=== PATIENT | male | born 1965 | race Caucasian/White ===

== ENCOUNTER 2017-04-04 01:03 | Emergency (ER) | payer MEDICARE | END 2017-04-04 10:09 | disposition home or self-care (01) | LOC: ED 01:50 | DX: G43.119 Migraine with aura, intractable, without status migrainosus (principal); F20.0 Paranoid schizophrenia; Z72.89 Other problems related to lifestyle | CPT/HCPCS: 99283 ==

== ENCOUNTER 2017-04-12 01:26 | Emergency (ER) | payer SELFPAY ==
[~2017-04-12] VITALS: Ht 165.1 cm; Wt 70.5 kg
[2017-04-12 01:29] VITALS: BP 102/67
== END 2017-04-12 02:13 | disposition left against medical advice (07) ==
LOC: ED 02:07
DX: B35.0 Tinea barbae and tinea capitis (principal); F20.9 Schizophrenia, unspecified; F17.200 Nicotine dependence, unspecified, uncomplicated; Z59.0 Homelessness
CPT/HCPCS: 99281